=== PATIENT | male | born 1995 | race Caucasian/White ===

== ENCOUNTER 2022-02-06 14:50 | Emergency (ER) | payer BC, OTHER ==
[~2022-02-06] VITALS: Ht 177.8 cm; Wt 100.6 kg
[2022-02-06 14:50] VITALS: BP 172/81
[2022-02-06] MEDS ORDERED: SING10TA32 PO (14:55)
[2022-02-06] MEDS ORDERED: MONT10TA97 PO (14:55)
== END 2022-02-06 16:24 | disposition home or self-care (01) ==
LOC: M ED 14:50
DX: R09.89 Other specified symptoms and signs involving the circulatory and respiratory systems (principal); T18.198A Other foreign object in esophagus causing other injury, initial encounter